=== PATIENT | female | born 1955 | race Two or more races ===

== ENCOUNTER 2016-03-20 09:15 | Emergency (ER) | payer MEDICAID, OTHER ==
[~2016-03-20] VITALS: Ht 165.1 cm; Wt 68.0 kg
[~2016-03-20 09:15] MED LIST: ALBUTEROL SULF8.5 GM INH; AZITHROMYCIN250 MG ORAL; CIPRO PO; CIPRO500 MG PO; IBUPROFEN200 MG ORAL; MACRODANTIN100 MG PO; PHENAZOPYRIDIN200 MG ORAL; PHENAZOPYRIDIN200 MG PO; SYNTHROID25 MCG ORAL; TYLENOL EXTRA500 MG ORAL; UNOBMED; VICODIN 5-5001 EACH PO; ZITHROMAX250 MG ORAL; ZOFRAN ODT4 MG ORAL
[2016-03-20 09:30] VITALS: BP 173/82
[2016-03-20] MEDS ORDERED: Albuterol ud Inhalation HHN ONE (09:30)
--- NOTE | 2016-03-20 09:34 | Emergency Room Report ---
History of Present Illness General Chief Complaint: Upper Respiratory Illness Source: Patient Present Illness HPI Patient presents with complaints of congestion cough Ongoing for the past 7 days Now having increased left-sided chest pain Patient reports having a history of cardiomegaly and thyroid disease Denies any abdominal pain Patient reports phlegm production with the cough also feels that she is very congested with a nasal area Denies any vomiting or diarrhea denies any fevers denies any recent travel Allergies: Coded Allergies: No Known Allergies (Verified , 05/27/14) Patient History Past Medical History: see triage record Pertinent Family History: none Last Menstrual Period: none Now: No Reviewed Nursing Documentation: PMH: Agreed, PSxH: Agreed Nursing Documentation-PMH Past Medical History: No History, Except For Hx Cardiac Problems: Yes - hyperthyroidism Hx Hypertension: Yes Hx Diabetes: No Hx Gastrointestinal Problems: Yes - history kidney problems Review of Systems All Other Systems: negative except mentioned in HPI Physical Exam Vital Signs Date Time Temp Pulse Resp B/P Pulse Ox O2 Delivery O2 Flow Rate FiO2 03/20/16 09:18 99.0 89 24 167/95 98 Room Air Sp02 EP Interpretation: reviewed, normal General Appearance: mild distress - Patient appears anxious Head: normocephalic, atraumatic Eyes: bilateral eye EOMI, bilateral eye PERRL ENT: hearing grossly normal, TMs + canals normal, other - Bilateral nasal congestion and rhinorrhea Neck: full range of motion, supple, no meningismus, no bony tend Respiratory: no retraction, no accessory muscle use, wheezing - Diffuse in both upper and lower lobes with crackles throughout Cardiovascular #1: normal peripheral pulses, regular rate, rhythm, no edema, no gallop, no JVD, no murmur Gastrointestinal: normal bowel sounds, non tender, soft, no mass, no organomegaly, non-distended, no guarding, no hernia, no pulsatile mass, no rebound Genitourinary: no CVA tenderness Musculoskeletal: normal inspection Neurologic: oriented x3, responsive, director design III-XII nml as tested, motor strength/ tone normal, sensory intact Psychiatric: mood/affect normal Skin: normal color, no rash, warm/dry, palpation normal Lymphatic: normal inspection, no adenopathy Medical Decision Making Diagnostic Impression: Primary Impression: Upper respiratory infection ER Course Patient is a fairly complex patient with multiple differential to consideration including but not limited to cardiac cardiopulmonary and vascular emergencies Patient's influenza swab was negative initial x-ray and blood work are also at baseline levels Given the patient's presentation slow component of flulike symptom present The patient's discomfort she also had some complaints of chest discomfort it was recommended for the patient to be admitted to the hospital however this time she states that she feels better she does not want to be admitted to the hospital and therefore at this time we will attempt conservative outpatient trial for URI symptoms However the patient is aware that her symptoms can worsen significantly very quickly leading to worsening symptoms Labs Test 03/20/16 10:00 White Blood Count 4.7 K/UL (4.8-10.8) Red Blood Count 4.52 M/UL (4.20-5.40) Hemoglobin 14.0 G/DL (12.0-16.0) Hematocrit 43.3 % (37.0-47.0) Mean Corpuscular Volume 96 FL (80-99) Mean Corpuscular Hemoglobin 31.0 PG (27.0-31.0) Mean Corpuscular Hemoglobin Concent 32.4 G/DL (32.0-36.0) Red Cell Distribution Width 11.4 % (11.6-14.8) Platelet Count 147 K/UL (150-450) Mean Platelet Volume 11.0 FL (6.5-10.1) Neutrophils (%) (Auto) 64.2 % (45.0-75.0) Lymphocytes (%) (Auto) 20.6 % (20.0-45.0) Monocytes (%) (Auto) 9.6 % (1.0-10.0) Eosinophils (%) (Auto) 4.2 % (0.0-3.0) Basophils (%) (Auto) 1.4 % (0.0-2.0) Prothrombin Time 9.6 SEC (9.30-11.50) Prothromb Time International Ratio 0.9 (0.9-1.1) Activated Partial Thromboplast Time 28 SEC (23-33) Sodium Level 138 mEQ/L (135-145) Potassium Level 4.7 mEQ/L (3.4-4.9) Chloride Level 100 mEQ/L (98-107) Carbon Dioxide Level 24 mEQ/L (20-30) Anion Gap 14 (5-15) Blood Urea Nitrogen 16 mg/dL (7-23) Creatinine 1.0 mg/dL (0.5-0.9) Estimat Glomerular Filtration Rate 56.8 mL/min (>60) Glucose Level 114 mg/dL (74-106) Lactic Acid Level 1.20 mmol/L (0.66-2.22) Calcium Level 8.5 mg/dL (8.6-10.2) Total Bilirubin 0.2 mg/dL (0.0-1.2) Aspartate Amino Transf (AST/SGOT) 48 U/L (5-40) Alanine Aminotransferase (ALT/SGPT) 38 U/L (3-33) Alkaline Phosphatase 73 U/L (35-104) Total Creatine Kinase 128 U/L (26-140) Creatine Kinase MB 2.1 ng/mL (< 3.8) Creatine Kinase MB Relative Index 1.6 Troponin I < 0.30 ng/mL (<=0.30) Pro-B-Type Natriuretic Peptide 163 pg/mL (0-125) Total Protein 7.0 g/dL (6.6-8.7) Albumin 3.5 g/dL (3.5-5.2) Globulin 3.5 g/dL Albumin/Globulin Ratio 1.0 (1.0-2.7) EKG Diagnostic Results Rate: normal Rhythm: NSR ST Segments: other - Nonspecific ST and T-wave changes Rhythm Strip Diag. Results EP Interpretation: yes Rate: 67 Rhythm: NSR, no PVC's, no ectopy Chest X-Ray Diagnostic Results EP Interpretation: Yes Findings: no consolidation, no effusion, no pneumothorax Number of Views: 1 Last Vital Signs Date Time Temp Pulse Resp B/P Pulse Ox O2 Delivery O2 Flow Rate FiO2 03/20/16 09:18 99.0 89 24 167/95 98 Room Air Status: improved Disposition: HOME, SELF-CARE Condition: Improved Scripts Cetirizine Hcl/Pseudoephedrine (ZYRTEC-D TABLET) 1 Each Tab.er.12h 1 EACH ORAL DAILY for 5 Days, TAB Prov: GLEN REECE D.O. 03/20/16 Azithromycin* (ZITHROMAX*) 250 Mg Tablet 250 MG ORAL DAILY, #6 TAB 0 Refills Take two tablets by mouth today, then take one tablet by mouth daily for four days Prov: GLEN REECE D.O. 03/20/16 Albuterol Sulfate* (ALBUTEROL SULFATE MDI*) 8.5 Gm Hfa.aer.ad 2 PUFF INH Q6H, #1 EA 0 Refills Prov: GLEN REECE D.O. 03/20/16 Additional Instructions: Patient is provided with the discharge instructions notified to follow up with primary doctor in the next 2-3 days otherwise return to the er with any worsening symptoms. GLEN REECE D.O. Mar 20, 2016 09:34
[2016-03-20 10:21] LABS: BASOPHILS % (AUTO) 1.4 % (0.0-2.0); EOSINOPHILS % (AUTO) 4.2 % (0.0-3.0); LYMPHOCYTES % (AUTO) 20.6 % (20.0-45.0); MEAN CORPUSCULAR HGB CONC 32.4 G/DL (32.0-36.0); MEAN CORPUSCULAR VOLUME 96 FL (80-99); MONOCYTES % (AUTO) 9.6 % (1.0-10.0); NEUTROPHILS % (AUTO) 64.2 % (45.0-75.0); PLATELET COUNT 147 K/UL (150-450); RED BLOOD COUNT 4.52 M/UL (4.20-5.40); RED CELL DISTRIBUTION WIDTH 11.4 % (11.6-14.8); WHITE BLOOD COUNT 4.7 K/UL (4.8-10.8)
[2016-03-20 10:34] LABS: INR 0.9 (0.9-1.1); PROTHROMBIN TIME 9.6 SEC (9.30-11.50)
[2016-03-20 10:51] LABS: TROPONIN I < 0.30 ng/mL (<=0.30)
--- NOTE | 2016-03-20 10:53 | Diagnostic Imaging Report ---
Indication: SOB Technique: One view of the chest Comparison: 05/27/2014 Findings: Lungs and pleural spaces are clear. Heart size is upper limits of normal. No significant change Impression: No acute process
[2016-03-20 10:54] LABS: CALCIUM 8.5 mg/dL (8.6-10.2); GLOMERULAR FILTRATION RATE 56.8 mL/min (>60); POTASSIUM 4.7 mEQ/L (3.4-4.9)
[2016-03-20 11:05] LABS: CKMB 2.1 ng/mL (< 3.8)
[2016-03-20 11:35] VITALS: BP 150/90
[2016-03-20] MEDS ORDERED: ZYRTEC-D TABLE1 EACH ORAL (11:43)
[2016-03-20] MEDS ORDERED: AZITHROMYCIN250 MG ORAL (11:43)
[2016-03-20] MEDS ORDERED: ALBUTEROL SULF8.5 GM INH (11:43)
[2016-03-20 12:00] VITALS: BP 150/80
--- NOTE | 2016-03-23 08:35 | Cardiology Report ---
APPROVED REPORT EKG Measurement Heart [id number] Normal sinus rhythm Possible Left atrial enlargement Prolonged QT Abnormal ECG
== END 2016-03-20 12:00 | disposition home or self-care (01) ==
LOC: EMR 09:39 → EDBEDREQ 10:17 → EMR 12:00
DX: J06.9 Acute upper respiratory infection, unspecified (principal); I10 Essential (primary) hypertension; I51.7 Cardiomegaly; E05.90 Thyrotoxicosis, unspecified without thyrotoxic crisis or storm; N28.9 Disorder of kidney and ureter, unspecified
CPT/HCPCS: 36415; 71010; 80053; 82550; 82553; 83605; 83880; 84484; 85025; 85610; 85730; 86710; 87040; 93005; 94640; 94664; 99284

== ENCOUNTER 2017-07-01 22:25 | Emergency (ER) | payer OTHER ==
[~2017-07-01] VITALS: Ht 167.6 cm; Wt 63.5 kg
[~2017-07-01 22:25] MED LIST changes: +ZYRTEC-D TABLE1 EACH ORAL
[2017-07-01 22:45] VITALS: BP 157/97
--- NOTE | 2017-07-01 22:46 | Emergency Room Report ---
History of Present Illness General Chief Complaint: General Complaint Source: Patient Present Illness HPI 61-year-old female, presenting with foreign body sensation in throat. Patient states that she ate tacos with crunchy tortilla, feels that still in the right side of her throat. This happened in the afternoon she is still been able to eat and drink since then. No vomiting. No other complaints Allergies: Coded Allergies: No Known Allergies (Verified , 05/27/14) Patient History Past Medical History: see triage record Past Surgical History: none Pertinent Family History: none Last Menstrual Period: none Now: No : 6 Para: 6 Reviewed Nursing Documentation: PMH: Agreed; PSxH: Agreed Nursing Documentation-PMH Hx Cardiac Problems: Yes - hyperthyroidism Hx Hypertension: Yes Hx Diabetes: No Hx Gastrointestinal Problems: Yes - history kidney problems Review of Systems All Other Systems: negative except mentioned in HPI Physical Exam Vital Signs Date Time Temp Pulse Resp B/P (MAP) Pulse Ox O2 Delivery O2 Flow Rate FiO2 07/01/17 22:33 97.9 73 18 157/97 96 Room Air 97.9 Sp02 EP Interpretation: reviewed, normal General Appearance: normal inspection, well appearing, no apparent distress, alert, GCS 15, non-toxic Head: normocephalic, atraumatic Eyes: bilateral eye normal inspection, bilateral eye PERRL, bilateral eye EOMI ENT: normal ENT inspection, normal pharynx, normal voice, moist mucus membranes , other - no fb noted Neck: normal inspection, full range of motion, supple Respiratory: normal inspection, lungs clear, normal breath sounds, no respiratory distress, no retraction, no wheezing, speaking full sentences, chest symmetrical Cardiovascular #1: normal inspection, regular rate, rhythm, no edema, normal capillary refill Cardiovascular #2: 2+ radial (R), 2+ radial (L) Gastrointestinal: normal inspection, non tender, soft, non-distended, no guarding Musculoskeletal: normal inspection, back normal, normal range of motion, non- tender Neurologic: normal inspection, alert, oriented x3, responsive, motor strength/ tone normal, sensory intact, normal gait, speech normal Psychiatric: normal inspection, judgement/insight normal, memory normal Skin: normal inspection, normal color, no rash, warm/dry, well hydrated, normal turgor Medical Decision Making Diagnostic Impression: Primary Impression: Foreign body sensation in throat ER Course 61-year-old female with foreign body sensation in throat DDX: Foreign body is not harmful, it is tortilla Plan: Motrin, x-ray ER course: Patient has remained stable during ED stay. Tolerating by mouth Disposition: Patient is to be discharged to home. Strict return precautions discussed with patient such as fever, chills, worsening/severe pain, chest pain, SOB, nausea, vomiting, which may indicate severe illness. Patient verbalizes understanding and agrees with plan. Please note that this Emergency Department Report was dictated using [employer]/structure inspection team leader technology software, occasionally this can lead to erroneous entry secondary to interpretation by the dictation equipment Xray: Soft tissue neck 2 view Indication: Pain EP Interpretation: Yes Interpretation: No foreign body Impression: No acute disease Electronically signed by Joby Villagran MD Last Vital Signs Date Time Temp Pulse Resp B/P (MAP) Pulse Ox O2 Delivery O2 Flow Rate FiO2 07/01/17 22:33 97.9 73 18 157/97 96 Room Air 97.9 Disposition: HOME, SELF-CARE Condition: Improved Joby Villagran M.D. Jul 01, 2017 22:46
[2017-07-01 23:35] VITALS: BP 157/97
--- NOTE | 2017-07-02 10:50 | Diagnostic Imaging Report ---
Indication: Pain, sensation of food stuck in the right side of the throat Technique: 2 views of the neck with soft tissue technique Comparison: none Findings: No prevertebral soft tissue swelling. Normal epiglottis. No hypopharyngeal distention or colonic narrowing. No radiopaque foreign body demonstrated. Mild degenerative changes of the cervical spine are incidentally noted Impression: Negative
== END 2017-07-01 23:34 | disposition home or self-care (01) ==
LOC: EMR 23:00
DX: R09.89 Other specified symptoms and signs involving the circulatory and respiratory systems (principal); I10 Essential (primary) hypertension; E05.90 Thyrotoxicosis, unspecified without thyrotoxic crisis or storm
CPT/HCPCS: 70360; 99283

== ENCOUNTER 2018-02-11 08:45 | Emergency (ER) | payer OTHER ==
[~2018-02-11] VITALS: Ht 167.6 cm; Wt 77.1 kg
[2018-02-11 08:50] VITALS: BP 152/87
[2018-02-11] MEDS ORDERED: Acetaminophen 500mg (ES) tab ORAL ONE (09:00)
--- NOTE | 2018-02-11 09:05 | Emergency Room Report ---
History of Present Illness General Chief Complaint: Abdominal Pain Source: Patient Present Illness HPI Patient is a 62-year-old female brought in by walk-in for increased right upper quadrant abdominal pain. Patient reports having prior history of urinary tract infections in the past. Patient had returned from [facility] last night. She denies any chest discomfort or cough. Patient reports having worsening fever as well as vomiting. She had taken ibuprofen without improvement. Noted to have no cough or runny nose. She denies any sore throat. The patient reports having increased right upper quadrant pain. She had no associated skin color changes. She denies any vomiting or diarrhea. Allergies: Coded Allergies: No Known Allergies (Verified , 05/27/14) Patient History Past Medical History: see triage record Reviewed Nursing Documentation: PMH: Agreed; PSxH: Agreed Nursing Documentation-PMH Past Medical History: No History, Except For Hx Cardiac Problems: Yes - hyperthyroidism Hx Hypertension: Yes Hx Diabetes: No Hx Gastrointestinal Problems: Yes - history kidney problems Review of Systems All Other Systems: negative except mentioned in HPI Physical Exam Vital Signs Date Time Temp Pulse Resp B/P (MAP) Pulse Ox O2 Delivery O2 Flow Rate FiO2 02/11/18 08:50 98.2 84 21 152/87 97 Room Air Sp02 EP Interpretation: reviewed, normal General Appearance: normal inspection, well appearing, no apparent distress, alert, GCS 15 Head: atraumatic ENT: normal ENT inspection, hearing grossly normal, normal voice Neck: normal inspection, full range of motion, supple, no bony tend Respiratory: normal inspection, lungs clear, normal breath sounds, no respiratory distress, no retraction, no wheezing Cardiovascular #1: regular rate, rhythm, no edema Gastrointestinal: normal bowel sounds, soft, no guarding, no hernia, tenderness - right upper quadrant Genitourinary: no CVA tenderness Musculoskeletal: normal inspection, back normal, normal range of motion Neurologic: normal inspection, alert, oriented x3, responsive, casing crew III-XII nml as tested, motor strength/tone normal, speech normal Psychiatric: normal inspection, judgement/insight normal, mood/affect normal Skin: normal inspection, normal color, no rash Medical Decision Making Diagnostic Impression: Primary Impression: Fever Additional Impressions: Liver cyst Polycystic kidney disease ER Course Patient presented for abdominal pain. Differential diagnoses included ischemic bowel, appendicitis, perforated viscus, abdominal aortic aneurysm, inferior myocardial infarction, viral gastroenteritis Because of complexity of patient's case laboratory testing and imaging studies were ordered.The patient's blood testing showed evidence of the left shift and polycystic kidney disease on CT as well as polycystic liver disease.The patient was noted to have fever after recent travel. On broad-spectrum antibiotics. Dr. Barnes was contacted for [facility] for possible transfer. Labs Test 02/11/18 09:08 02/11/18 09:19 White Blood Count 10.4 K/UL (4.8-10.8) Red Blood Count 4.84 M/UL (4.20-5.40) Hemoglobin 14.6 G/DL (12.0-16.0) Hematocrit 43.3 % (37.0-47.0) Mean Corpuscular Volume 90 FL (80-99) Mean Corpuscular Hemoglobin 30.2 PG (27.0-31.0) Mean Corpuscular Hemoglobin Concent 33.7 G/DL (32.0-36.0) Red Cell Distribution Width 11.0 % (11.6-14.8) Platelet Count 137 K/UL (150-450) Mean Platelet Volume 10.1 FL (6.5-10.1) Neutrophils (%) (Auto) 83.5 % (45.0-75.0) Lymphocytes (%) (Auto) 8.7 % (20.0-45.0) Monocytes (%) (Auto) 7.2 % (1.0-10.0) Eosinophils (%) (Auto) 0.2 % (0.0-3.0) Basophils (%) (Auto) 0.4 % (0.0-2.0) Urine Color Pale yellow Urine Appearance Clear Urine pH 7 (4.5-8.0) Urine Specific [place] 1.005 (1.005-1.035) Urine Protein 1+ (NEGATIVE) Urine Glucose (UA) Negative (NEGATIVE) Urine Ketones Negative (NEGATIVE) Urine Blood 1+ (NEGATIVE) Urine Nitrite Negative (NEGATIVE) Urine Bilirubin Negative (NEGATIVE) Urine Urobilinogen Normal MG/DL (0.0-1.0) Urine Leukocyte Esterase 1+ (NEGATIVE) Urine RBC 0-2 /HPF (0 - 2) Urine WBC 0-2 /HPF (0 - 2) Urine Squamous Epithelial Cells Occasional /LPF Urine Bacteria Occasional /HPF (NONE) Sodium Level 137 MMOL/L (136-145) Potassium Level 3.8 MMOL/L (3.5-5.1) Chloride Level 101 MMOL/L (98-107) Carbon Dioxide Level 26 MMOL/L (21-32) Anion Gap 10 mmol/L (5-15) Blood Urea Nitrogen 18 mg/dL (7-18) Creatinine 0.9 MG/DL (0.55-1.30) Estimat Glomerular Filtration Rate > 60 mL/min (>60) Glucose Level 131 MG/DL (74-106) Calcium Level 9.0 MG/DL (8.5-10.1) Phosphorus Level 2.4 MG/DL (2.5-4.9) Magnesium Level 1.5 MG/DL (1.8-2.4) Total Bilirubin 1.2 MG/DL (0.2-1.0) Direct Bilirubin 0.3 MG/DL (0.0-0.3) Aspartate Amino Transf (AST/SGOT) 60 U/L (15-37) Alanine Aminotransferase (ALT/SGPT) 54 U/L (12-78) Alkaline Phosphatase 85 U/L (46-116) Total Creatine Kinase 93 U/L (26-308) Creatine Kinase MB 0.8 NG/ML (0.0-3.6) Creatine Kinase MB Relative Index 0.8 Troponin I 0.010 ng/mL (0.000-0.056) Total Protein 8.2 G/DL (6.4-8.2) Albumin 3.3 G/DL (3.4-5.0) Globulin 4.9 g/dL Albumin/Globulin Ratio 0.7 (1.0-2.7) Lactic Acid Level 0.90 mmol/L (0.4-2.0) Last Vital Signs Date Time Temp Pulse Resp B/P (MAP) Pulse Ox O2 Delivery O2 Flow Rate FiO2 02/11/18 08:50 98.2 84 21 152/87 97 Room Air Status: unchanged Disposition: XFER SHT-TRM HOSP Condition: Serious Dawson Reyes MD Feb 11, 2018 09:05
[2018-02-11] MEDS ORDERED: Isovue-300 100ml vial INJ PRN (09:15)
[2018-02-11 09:37] LABS: BASOPHILS % (AUTO) 0.4 % (0.0-2.0); EOSINOPHILS % (AUTO) 0.2 % (0.0-3.0); HEMATOCRIT 43.3 % (37.0-47.0); HEMOGLOBIN 14.6 G/DL (12.0-16.0); LYMPHOCYTES % (AUTO) 8.7 % (20.0-45.0); MEAN CORPUSCULAR VOLUME 90 FL (80-99); MONOCYTES % (AUTO) 7.2 % (1.0-10.0); NEUTROPHILS % (AUTO) 83.5 % (45.0-75.0); PLATELET COUNT 137 K/UL (150-450); RED BLOOD COUNT 4.84 M/UL (4.20-5.40); WHITE BLOOD COUNT 10.4 K/UL (4.8-10.8)
[2018-02-11 09:42] LABS: APPEARANCE,URINE CLEAR; BILIRUBIN, URINE NEGATIVE (NEGATIVE); COLOR,URINE PALE YELLOW; GLUCOSE, URINE (UA) NEGATIVE (NEGATIVE); KETONES,URINE NEGATIVE (NEGATIVE); LEUKOCYTE ESTERASE ,URINE 1+ (NEGATIVE); NITRITE,URINE NEGATIVE (NEGATIVE); PH,URINE 7 (4.5-8.0); PROTEIN,URINE 1+ (NEGATIVE); UROBILINOGEN,URINE NORMAL MG/DL (0.0-1.0)
[2018-02-11 09:46] LABS: ANION GAP 10 mmol/L (5-15); BLOOD UREA NITROGEN 18 mg/dL (7-18); CARBON DIOXIDE 26 MMOL/L (21-32); CHLORIDE 101 MMOL/L (98-107); CREATININE 0.9 MG/DL (0.55-1.30); POTASSIUM 3.8 MMOL/L (3.5-5.1); SODIUM 137 MMOL/L (136-145)
[2018-02-11] MEDS ORDERED: Omnipaque-300 100ml vial INJ ONE (09:56)
[2018-02-11 10:00] LABS: ALANINE AMINOTRANSFERASE 54 U/L (12-78); ALBUMIN 3.3 G/DL (3.4-5.0); ALBUMIN/GLOBULIN RATIO 0.7 (1.0-2.7); ALKALINE PHOSPHATASE 85 U/L (46-116); ASPARTATE AMINO TRANSFERASE 60 U/L (15-37); BILIRUBIN,TOTAL 1.2 MG/DL (0.2-1.0); CKMB 0.8 NG/ML (0.0-3.6); CREATINE KINASE 93 U/L (26-308); PHOSPHORUS 2.4 MG/DL (2.5-4.9)
--- NOTE | 2018-02-11 10:02 | Diagnostic Imaging Report ---
EXAM: XR Chest, 1 View CLINICAL HISTORY: ABD TEND TECHNIQUE: Frontal view of the chest. COMPARISON: No relevant prior studies available. FINDINGS: Lungs: Unremarkable. The lungs appear clear. No confluent pulmonary opacities. Pleural space: Unremarkable. The costophrenic angles are sharp. No visible pneumothorax. Heart: Unremarkable. No cardiomegaly. Mediastinum: Unremarkable. Bones/joints: Unremarkable. IMPRESSION: Unremarkable chest x-ray.
[2018-02-11 10:17] LABS: BILIRUBIN,DIRECT 0.3 MG/DL (0.0-0.3)
[2018-02-11] MEDS ORDERED: Piperacillin/Tazobactam 3.375 GM in NS 110 ML IVPB ONE (10:30)
--- NOTE | 2018-02-11 11:12 | Diagnostic Imaging Report ---
EXAM: CT Abdomen and Pelvis With Intravenous Contrast CLINICAL HISTORY: ABD PAIN TECHNIQUE: Axial computed tomography images of the abdomen and pelvis with intravenous contrast. CTDI is 12.92 mGy and DLP is 652 mGy-cm. One or more of the following dose reduction techniques were used: automated exposure control, adjustment of the mA and/or kV according to patient size, use of iterative reconstruction technique. COMPARISON: Report from a CT abdomen pelvis dated 02/06/13. No images available for comparison. FINDINGS: Lung bases: 4 mm calcified granuloma in the right middle lobe (series 7 image 1). Mildly narrowed atelectasis in the lingula. ABDOMEN: Liver: Innumerable simple-appearing hepatic cysts, largest measuring 6. 1 cm in the right hepatic lobe. Gallbladder and bile ducts: Unremarkable. No calcified stones. No ductal dilation. Pancreas: Unremarkable. No mass. No ductal dilation. Spleen: Punctate calcified granuloma in the spleen. Spleen otherwise appears unremarkable. Adrenals: Unremarkable. No mass. Kidneys and ureters: Innumerable simple-appearing renal cysts, largest measuring 5.4 cm in the left mid kidney. No visible renal or ureteral stones. No hydronephrosis or hydroureter. Stomach and bowel: Mild wall thickening in the ascending and proximal transverse colon, likely related to underdistention. No evidence of bowel obstruction. Stomach and GE junction appear unremarkable. PELVIS: Appendix: No findings to suggest acute appendicitis. Bladder: Unremarkable. No mass. Reproductive: Unremarkable as visualized. ABDOMEN and PELVIS: Intraperitoneal space: Unremarkable. No free air. No significant fluid collection. Bones/joints: No acute fracture. No dislocation. Soft tissues: Unremarkable. Vasculature: Unremarkable. No abdominal aortic aneurysm. Lymph nodes: Unremarkable. No enlarged lymph nodes. IMPRESSION: 1. Mild wall thickening in the ascending and proximal transverse colon. This is likely related to underdistention although cannot exclude a mild colitis. No adjacent inflammatory changes. 2. Innumerable simple-appearing hepatic and renal cysts, suggesting autosomal dominant polycystic kidney disease.
[2018-02-11 11:40] VITALS: BP 140/71
[2018-02-11] MEDS ORDERED: Morphine Sulfate 4mg/ml Inj (IV/IM USE ONLY) IVP ONE (12:15)
[2018-02-11 14:18] VITALS: BP 140/71
--- NOTE | 2018-02-12 12:47 | Consultation ---
History of Present Illness General Date patient seen: Feb 11, 2018 Chief Complaint: Abdominal Pain Reason for Consultation: abdominal pain Present Illness HPI Late entry as patient was seen in ED and anticipated admission with plans to write note later. 62-year-old female came in as a walk in for increased right upper quadrant abdominal pain, nausea, emesis. States has been having fevers recently with t max 102 at home. Patient reports having prior history of urinary tract infections in the past. Patient with recent travel and returned from [facility] last night. She denies any chest discomfort or cough. She had taken ibuprofen for the abdominal pain without improvement. Pain described as cramping RUQ pain with epigastric radiation. non bloody bilious emesis. Noted to have no cough or runny nose. She denies any sore throat. normal flatus and BM. no prior symptoms similar. CT noted to have multiple liver and renal cystis. surgery called to evaluate in case biliary or hepatic abscess. patient seen in ED, chart reviewed, patient examined. states still feels feverish and dull RUQ discomfort. currently no n/v. Allergies: Coded Allergies: No Known Allergies (Verified , 05/27/14) Medication History Scheduled Albuterol Sulfate* (Albuterol Sulfate Mdi*), 2 PUFF INH Q6H Azithromycin* (Zithromax*), 250 MG ORAL DAILY Azithromycin* (Zithromax*), 250 MG ORAL DAILY Cetirizine Hcl/Pseudoephedrine (Zyrtec-D Tablet), 1 EACH ORAL DAILY Ciprofloxacin* (Cipro*), 500 MG PO BID Ibuprofen (Ibuprofen*), 200 MG ORAL Q8H Levothyroxine Sodium* (Synthroid*), 25 MCG ORAL DAILY, (Reported) Phenazopyridine Hcl* (Pyridium*), 200 MG ORAL THREE TIMES A DAY Scheduled PRN Acetaminophen* (Tylenol Extra Strength*), 500 MG ORAL Q6H PRN for Prn Headache/ Temp > 101 Albuterol Sulfate* (Albuterol Sulfate Mdi*), 2 PUFF INH Q4H PRN for Shortness of Breath Ondansetron Odt* (Zofran Odt*), 4 MG ORAL Q6H PRN for Nausea & Vomiting Patient History History Provided By: Patient, Medical Record, PMD Healthcare decision maker Resuscitation status Advanced Directive on File Past Medical/Surgical History Past Medical/Surgical History: (1) Pyelonephritis (2) Bronchitis (3) UTI (lower urinary tract infection) (4) Viral syndrome (5) Body aches (6) UTI (lower urinary tract infection) (7) Dysuria (8) Vomiting (9) Upper respiratory infection (10) Foreign body sensation in throat (11) Fever Review of Systems All Other Systems: negative except mentioned in HPI Physical Exam General Appearance: no apparent distress, alert Lines, tubes and drains: peripheral HEENT: mucous membranes moist Neck: normal inspection Respiratory/Chest: normal breath sounds, no respiratory distress, no accessory muscle use Cardiovascular/Chest: normal rate, regular rhythm Abdomen: normal bowel sounds, soft, no organomegaly, no mass, tender Extremities: normal inspection Skin Exam: warm/dry Neurologic: alert, responsive Last 24 Hour Vital Signs Date Time Temp Pulse Resp B/P (MAP) Pulse Ox O2 Delivery O2 Flow Rate FiO2 02/11/18 14:18 98.0 75 19 140/71 100 Room Air 02/11/18 12:44 98.0 Intake and Output 02/11/18 02/12/18 19:00 07:00 Intake Total 1210 ml Balance 1210 ml Intake IV Total 1210 ml # Voids 1 Height (Feet): 5 Height (Inches): 6.00 Weight (Pounds): 170 Assessment/Plan Problem List: (1) Liver cyst Assessment & Plan: multiple liver and renal cyst. known history of PCK. no leukocytosis. labs noted GB noted exam with minimal RUQ discomfort unlikely liver abscess. 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 ICD Codes: K76.89 - Other specified diseases of liver SNOMED: [id number] (2) Viral syndrome ICD Codes: B34.9 - Viral infection, unspecified SNOMED: [id number] Status: stable Nicolas Johnson Feb 12, 2018 12:47
== END 2018-02-11 14:03 | disposition short-term general hospital (02) ==
LOC: EMR 09:04
DX: R50.9 Fever, unspecified (principal); K76.89 Other specified diseases of liver; Q61.3 Polycystic kidney, unspecified; I10 Essential (primary) hypertension; E05.90 Thyrotoxicosis, unspecified without thyrotoxic crisis or storm
CPT/HCPCS: 36415; 71045; 74177; 80053; 81003; 82248; 82550; 82553; 83605; 83735; 84100; 84484; 85025; 86710; 86850; 86900; 86901; 87040; 93005; 96361; 96365; 96368; 96375; 99284; J2270; J2543; Q9966; Q9967

== ENCOUNTER 2018-04-10 00:04 | Emergency (ER) | payer OTHER ==
[~2018-04-10] VITALS: Ht 165.1 cm; Wt 63.5 kg
[2018-04-10] MEDS ORDERED: NKM (00:14)
--- NOTE | 2018-04-10 00:15 | NUR ---
ED Nurse Note: ERMD notified regarding pt's condition, pt states she has cp and sob. noted audible wheezing, accesory muscle use.
--- NOTE | 2018-04-10 00:15 | NUR ---
ED Nurse Note: pt walked into ED c/o difficulty breathing and chest pain started 8pm today, pt states she woke up with pain and started having difficulty breathing, never had pain before, on sternal area radiates to left side. Pt aa&ox4, gcs=15, skin warm and dry, noted audible wheezing, mild expiratory wheezing on LS, -n/v/d, abd soft nondistended nontender, ambulates w/ steady gait. Pt NSR on cafeteria monitor, o2sat 100% on RA. bed lowest position, siderail x2, will cont monitor.
[2018-04-10] MEDS ORDERED: Albuterol ud Inhalation HHN ONE (00:45)
--- NOTE | 2018-04-10 00:45 | NUR ---
ED Nurse Note: received verbal order for breathing tx, contacted RT.
[2018-04-10 00:58] LABS: BASOPHILS % (AUTO) 1.1 % (0.0-2.0); EOSINOPHILS % (AUTO) 2.7 % (0.0-3.0); HEMATOCRIT 45.6 % (37.0-47.0); HEMOGLOBIN 15.2 G/DL (12.0-16.0); LYMPHOCYTES % (AUTO) 35.6 % (20.0-45.0); MEAN CORPUSCULAR VOLUME 93 FL (80-99); NEUTROPHILS % (AUTO) 55.5 % (45.0-75.0); PLATELET COUNT 219 K/UL (150-450); RED BLOOD COUNT 4.91 M/UL (4.20-5.40); RED CELL DISTRIBUTION WIDTH 12.1 % (11.6-14.8); WHITE BLOOD COUNT 6.8 K/UL (4.8-10.8)
--- NOTE | 2018-04-10 01:00 | NUR ---
ED Nurse Note: Rt at the bedside, pt receiving breathing tx.
[2018-04-10 01:10] VITALS: BP 136/98
[2018-04-10 01:10] LABS: ANION GAP 11 mmol/L (5-15); BLOOD UREA NITROGEN 24 mg/dL (7-18); CALCIUM 9.5 MG/DL (8.5-10.1); CARBON DIOXIDE 23 MMOL/L (21-32); CHLORIDE 104 MMOL/L (98-107); CREATININE 0.9 MG/DL (0.55-1.30); SODIUM 138 MMOL/L (136-145)
--- NOTE | 2018-04-10 01:14 | NUR ---
ED Nurse Note: pt airway intact, resp even and unlabored, LS=clear, noted no audible wheezing and no accessory muscle use, will cont monitor, pt currently on RA, x5=059%.
--- NOTE | 2018-04-10 01:14 | NUR ---
ED Nurse Note: pt reports chest pain is better after breathing tx, but still continue to have trouble breathing, will notify md.
[2018-04-10 01:25] LABS: ALANINE AMINOTRANSFERASE 28 U/L (12-78); ALBUMIN 3.4 G/DL (3.4-5.0); ALBUMIN/GLOBULIN RATIO 0.8 (1.0-2.7); ALKALINE PHOSPHATASE 84 U/L (46-116); ASPARTATE AMINO TRANSFERASE 37 U/L (15-37); BILIRUBIN,TOTAL 0.7 MG/DL (0.2-1.0); CKMB 1.9 NG/ML (0.0-3.6); CREATINE KINASE 213 U/L (26-308)
[2018-04-10 01:34] LABS: APPEARANCE,URINE CLEAR; BILIRUBIN, URINE NEGATIVE (NEGATIVE); COLOR,URINE PALE YELLOW; GLUCOSE, URINE (UA) NEGATIVE (NEGATIVE); KETONES,URINE NEGATIVE (NEGATIVE); LEUKOCYTE ESTERASE ,URINE 1+ (NEGATIVE); NITRITE,URINE NEGATIVE (NEGATIVE); PH,URINE 6.5 (4.5-8.0); PROTEIN,URINE NEGATIVE (NEGATIVE); UROBILINOGEN,URINE NORMAL MG/DL (0.0-1.0)
[2018-04-10] MEDS ORDERED: Enoxaparin 60mg Inj SUBQ ONE (01:45)
[2018-04-10] MEDS ORDERED: Aspirin Baby 81mg ORAL ONE (01:45)
[2018-04-10] MEDS ORDERED: Aspirin Baby 81mg ONE (02:02)
[2018-04-10 02:12] VITALS: BP 155/83
--- NOTE | 2018-04-10 02:46 | Emergency Room Report ---
History of Present Illness General Chief Complaint: Dyspnea/Respdistress Source: Patient Present Illness HPI This is a 62-year-old female with history hypertension. She woke up with chief complaint of shortness of breath. Onset was one hour ago. Pain is sharp and midsternal. Worse with exertion. Better with rest. Worse with lying flat. Never had this problem before. No diaphoresis. No radiation. Denies any other complaint. Allergies: Coded Allergies: No Known Allergies (Verified , 05/27/14) Patient History Past Medical History: see triage record, old chart reviewed, HTN Past Surgical History: other Pertinent Family History: none Social History: Denies: smoking Last Menstrual Period: MARISA Now: No Immunizations: other Reviewed Nursing Documentation: PMH: Agreed; PSxH: Agreed Nursing Documentation-PMH Past Medical History: No History, Except For Hx Cardiac Problems: Yes - hyperthyroidism Hx Hypertension: Yes Hx Diabetes: No Hx Gastrointestinal Problems: Yes - history kidney problems Review of Systems Eye: Denies: eye pain, blurred vision ENT: Denies: ear pain, nose congestion, throat swelling Respiratory: Reports: shortness of breath; Denies: cough Cardiovascular: Reports: chest pain; Denies: palpitations Gastrointestinal: Denies: abdominal pain, diarrhea, nausea, vomiting Musculoskeletal: Denies: back pain, joint pain Skin: Denies: rash Neurological: Denies: headache, numbness Endocrine: Denies: increased thirst, increased urine Hematologic/Lymphatic: Denies: easy bruising All Other Systems: negative except mentioned in HPI Physical Exam Vital Signs Date Time Temp Pulse Resp B/P (MAP) Pulse Ox O2 Delivery O2 Flow Rate FiO2 04/10/18 00:10 99.0 84 22 165/101 95 Room Air 04/10/18 00:50 21 vitals with high blood pressure Sp02 EP Interpretation: reviewed, normal General Appearance: well appearing, no apparent distress, alert Head: normocephalic, atraumatic Eyes: bilateral eye PERRL, bilateral eye EOMI ENT: hearing grossly normal, normal pharynx Neck: full range of motion, supple, no meningismus Respiratory: chest non-tender, lungs clear, normal breath sounds Cardiovascular #1: regular rate, rhythm, no murmur Gastrointestinal: normal bowel sounds, non tender, no mass, no organomegaly, no bruit, non-distended Musculoskeletal: back normal, gait/station normal, normal range of motion Psychiatric: mood/affect normal Skin: warm/dry Medical Decision Making Diagnostic Impression: Primary Impression: Acute CHF Qualified Codes: I50.9 - Heart failure, unspecified Additional Impression: ACS (acute coronary syndrome) ER Course Patient presents with shortness of breath. She does have evidence of CHF on the chest x-ray. This may be secondary to ACS. Could also be PE. Will get a CT scan to rule that out. I doubt patient is stable for transfer. I discussed case with Dr. Rodriguez for transfer to [facility] Laboratory Tests Test 04/10/18 00:44 04/10/18 00:45 White Blood Count 6.8 K/UL (4.8-10.8) Red Blood Count 4.91 M/UL (4.20-5.40) Hemoglobin 15.2 G/DL (12.0-16.0) Hematocrit 45.6 % (37.0-47.0) Mean Corpuscular Volume 93 FL (80-99) Mean Corpuscular Hemoglobin 31.0 PG (27.0-31.0) Mean Corpuscular Hemoglobin Concent 33.4 G/DL (32.0-36.0) Red Cell Distribution Width 12.1 % (11.6-14.8) Platelet Count 219 K/UL (150-450) Mean Platelet Volume 11.6 FL (6.5-10.1) H Neutrophils (%) (Auto) 55.5 % (45.0-75.0) Lymphocytes (%) (Auto) 35.6 % (20.0-45.0) Monocytes (%) (Auto) 5.0 % (1.0-10.0) Eosinophils (%) (Auto) 2.7 % (0.0-3.0) Basophils (%) (Auto) 1.1 % (0.0-2.0) Prothrombin Time 10.2 SEC (9.30-11.50) Prothromb Time International Ratio 1.0 (0.9-1.1) Activated Partial Thromboplast Time 27 SEC (23-33) D-Dimer 1.00 mg/L FEU (0.00-0.49) H Sodium Level 138 MMOL/L (136-145) Potassium Level 4.0 MMOL/L (3.5-5.1) Chloride Level 104 MMOL/L (98-107) Carbon Dioxide Level 23 MMOL/L (21-32) Anion Gap 11 mmol/L (5-15) Blood Urea Nitrogen 24 mg/dL (7-18) H Creatinine 0.9 MG/DL (0.55-1.30) Estimat Glomerular Filtration Rate > 60 mL/min (>60) Glucose Level 122 MG/DL (74-106) H Calcium Level 9.5 MG/DL (8.5-10.1) Total Bilirubin 0.7 MG/DL (0.2-1.0) Aspartate Amino Transf (AST/SGOT) 37 U/L (15-37) Alanine Aminotransferase (ALT/SGPT) 28 U/L (12-78) Alkaline Phosphatase 84 U/L (46-116) Total Creatine Kinase 213 U/L (26-308) Creatine Kinase MB 1.9 NG/ML (0.0-3.6) Creatine Kinase MB Relative Index 0.8 Troponin I 0.059 ng/mL (0.000-0.056) Pro-B-Type Natriuretic Peptide 1291 pg/mL (0-125) H Total Protein 7.9 G/DL (6.4-8.2) Albumin 3.4 G/DL (3.4-5.0) Globulin 4.5 g/dL Albumin/Globulin Ratio 0.8 (1.0-2.7) L Urine Color Pale yellow Urine Appearance Clear Urine pH 6.5 (4.5-8.0) Urine Specific [place] 1.010 (1.005-1.035) Urine Protein Negative (NEGATIVE) Urine Glucose (UA) Negative (NEGATIVE) Urine Ketones Negative (NEGATIVE) Urine Blood Negative (NEGATIVE) Urine Nitrite Negative (NEGATIVE) Urine Bilirubin Negative (NEGATIVE) Urine Urobilinogen Normal MG/DL (0.0-1.0) Urine Leukocyte Esterase 1+ (NEGATIVE) H Urine RBC 0-2 /HPF (0 - 2) Urine WBC 2-4 /HPF (0 - 2) Urine Squamous Epithelial Cells Few /LPF (NONE/OCC) Urine Bacteria Few /HPF (NONE) Lactic Acid Level 1.30 mmol/L (0.4-2.0) Lab Results Impression labs with elevated BNP EKG Diagnostic Results Rate: normal Rhythm: NSR ST Segments: no acute changes ASA given to the pt in ED: Yes Rhythm Strip Diag. Results Rhythm Strip Time: 02:44 EP Interpretation: yes Rate: 75 Rhythm: NSR, no PVC's, no ectopy Chest X-Ray Diagnostic Results Chest X-Ray Diagnostic Results : Chest X-Ray Ordered: Yes # of Views/Limited/Complete: 1 View Indication: Chest Pain EP Interpretation: Yes Interpretation: no consolidation, no effusion, no pneumothorax, other - vasc congestion Impression: Other - chf Electronically Signed by: Immanuel Rosas MD CT/MRI/US Diagnostic Results CT/MRI/US Diagnostic Results : Imaging Test Ordered: CTA chest Impression read by radiologist. Negative for PE. Effusion. Last Vital Signs Date Time Temp Pulse Resp B/P (MAP) Pulse Ox O2 Delivery O2 Flow Rate FiO2 04/10/18 02:12 98.0 85 16 155/83 98 Room Air 04/10/18 01:08 21 Status: improved Disposition: XFER SHT-TRM HOSP Condition: Stable Referrals: [facility],REFERRING (PCP) Immanuel Rosas MD Apr 10, 2018 02:46
--- NOTE | 2018-04-10 02:52 | NUR ---
ED Nurse Note: pt off to CT
[2018-04-10] MEDS ORDERED: Isovue-370 150ml vial INJ PRN (03:00)
--- NOTE | 2018-04-10 03:00 | NUR ---
ED Nurse Note: gave report to SANIA Addison and endorsed care. pt vss, resp even and unlabored, daughter at the bedside.
[2018-04-10 03:12] VITALS: BP 130/78
--- NOTE | 2018-04-10 03:43 | NUR ---
ED Nurse Note: pt on visual educator, bed lowest position with siderail x2.
--- NOTE | 2018-04-10 04:00 | NUR ---
ED Nurse Note: recieved report to resume care, pt is currently in bed, lying quietly on cardiac monitoring, pt waiting for transfer to another hospital for continued care, pt daughter at bedside, nad noted.
[2018-04-10 04:50] VITALS: BP 130/78
--- NOTE | 2018-04-10 04:51 | NUR ---
ED Nurse Note: pt being transferred to another hospital, while in trauma room with another pt, pt was released and gone via ambulance, was told by charge nurse that report was given to courtesy bus driver by , will call other hospital for report.
--- NOTE | 2018-04-10 09:36 | Diagnostic Imaging Report ---
Indication: Shortness of breath, onset one hour earlier Technique: IV administration nonionic contrast. Spiral acquisitions obtained from the lung bases to the lung apices. Multiplanar and 3-D reconstructions were generated. Total dose length product 738.62 mGycm. CTDIvol(s) 22.41 mGy. Dose reduction achieved using automated exposure control Comparison: No comparison chest CTs. Reference made to abdomen pelvis CT dated 02/11/2018 Findings: There is some image degradation due to respiratory motion artifact. Pulmonary arteries are well opacified. No definite intraluminal filling defects or other findings to suggest acute pulmonary embolus demonstrated. Normal caliber pulmonary arteries. No evidence of thoracic aortic aneurysm or dissection. No evidence of right ventricular dilatation. There is mild cardiomegaly, primarily manifested by enlargement of the left atrium and left ventricle. There is normal classic branching anatomy of the great neck vessels. There are bilateral small pleural effusions. There is fairly diffuse pulmonary parenchymal groundglass opacity. No dense consolidation demonstrated. Calcified nodules are seen in the right upper lobe, right middle lobe, and left lower lobe. Calcified granulomatous lymph nodes are seen in the right pulmonary hilum. There is a small amount of pericardial thickening versus fluid. No mediastinal mass or adenopathy demonstrated. The included portion of the thyroid is unremarkable. No axillary or chest wall mass or adenopathy. There are bilateral breast implants. The included upper abdominal anatomy is remarkable for the presence of innumerable cysts within the liver. This is also described on earlier CT scans. Numerous cysts, incompletely included, are seen in the upper pole of the left kidney. Impression: Somewhat limited exam, as described. No definite evidence of acute pulmonary embolus Cardiomegaly Bilateral pleural effusions Diffuse pulmonary parenchymal groundglass opacity, likely reflecting mild pulmonary edema Small amount of pericardial thickening versus fluid Evidence old granulomatous disease Hepatic and renal cysts, also previously described Bilateral breast prostheses This agrees with the preliminary interpretation provided overnight by [facility]. The CT scanner at [facility] is accredited by the [employer] and the scans are performed using protocols designed to limit radiation exposure to as low as reasonably achievable to attain images of sufficient resolution adequate for diagnostic evaluation.
--- NOTE | 2018-04-10 10:48 | Diagnostic Imaging Report ---
Indication: Shortness of breath Technique: One view of the chest Comparison: 02/11/2018 Findings: Ill-defined interstitial and airspace opacities are seen at the lung bases bilaterally. Pleural spaces are clear. The heart size is borderline enlarged. Calcified granulomata are seen in the lower lungs bilaterally Impression: Bilateral basilar opacities, likely reflecting congestive changes described on subsequent chest CT Borderline cardiomegaly Evidence of old granulomatous disease
--- NOTE | 2018-04-10 12:33 | Cardiology Report ---
APPROVED REPORT EKG Measurement Heart [id number] NH [id number] [id number] Normal sinus rhythm Possible Left atrial enlargement Prolonged QT Abnormal ECG
[2018-08-24] MEDS ORDERED: DICYCLOMINE HCL10 MG ORAL ×2 (23:41)
[2018-08-24] MEDS ORDERED: ONDANSETRON ODT4 MG BC ×2 (23:41)
== END 2018-04-10 04:51 | disposition short-term general hospital (02) ==
LOC: EMR 00:15
DX: I11.0 Hypertensive heart disease with heart failure (principal); I50.9 Heart failure, unspecified; I24.9 Acute ischemic heart disease, unspecified; E05.90 Thyrotoxicosis, unspecified without thyrotoxic crisis or storm
CPT/HCPCS: 36415; 71045; 71275; 80053; 81003; 82550; 82553; 83605; 83880; 84484; 85025; 85379; 85610; 85730; 87040; 93005; 94640; 94664; 96372; 96374; 99285; J1650; J1940; Q9967

== ENCOUNTER 2018-05-21 22:52 | Emergency (ER) | payer OTHER ==
[~2018-05-21] VITALS: Ht 162.6 cm; Wt 63.5 kg
[~2018-05-21 22:52] MED LIST changes: +NKM
[2018-05-21] MEDS ORDERED: [UNRECOGNIZED DRUG - OTHER] (23:02)
--- NOTE | 2018-05-21 23:03 | NUR ---
ED Nurse Note: pt walked in c/o cough x 1 week. Pt is AO x 4times, VSS, on room air no distress. CHELITAD seen Pt at bedside.
[2018-05-21 23:24] VITALS: BP 148/87
[2018-05-21] MEDS ORDERED: Albuterol ud Inhalation HHN ONE (23:45)
[2018-05-21] MEDS ORDERED: Ipratropium 0.02% Inh Soln 2.5ml UD HHN ONE (23:45)
[2018-05-22] MEDS ORDERED: PREDNISONE20 MG ORAL (00:24)
[2018-05-22] MEDS ORDERED: ALBUTEROL SULF8.5 GM INH (00:24)
[2018-05-22] MEDS ORDERED: PROMETHAZINE-C118 M1 ORAL (00:24)
[2018-05-22 00:32] VITALS: BP 150/81
[2018-05-22 00:33] VITALS: BP 150/81
--- NOTE | 2018-05-22 00:33 | NUR ---
ER DISCHARGE NOTE: Patient is cleared to be discharged per ERMD, pt is aox4, on room air, with stable vital signs. pt was given dc and prescription instructions, pt was able to verbalize understanding, pt id band removed without complications. pt is able to ambulate with steady gait with son. pt took all belongings.
--- NOTE | 2018-05-22 03:02 | Emergency Room Report ---
History of Present Illness General Chief Complaint: Upper Respiratory Illness Source: Patient, Family Member Present Illness HPI 62-year-old female presents ED for evaluation. Patient complaining of cough times one week. Cough is productive with yellowish phlegm. Feels chest tightness. Notes history of asthma. Denies fevers or chills. Denies chest pain. Denies smoking or drug use. Denies sick contacts or recent travel. No other aggravating relieving factors. Denies any other associated symptoms Allergies: Coded Allergies: No Known Allergies (Verified , 05/27/14) Patient History Past Medical History: HTN, asthma Past Surgical History: none Pertinent Family History: none Social History: Denies: smoking, alcohol use, drug use Last Menstrual Period: 2 decades ago Now: No Immunizations: UTD Reviewed Nursing Documentation: PMH: Agreed; PSxH: Agreed Nursing Documentation-PMH Hx Cardiac Problems: Yes - hyperthyroidism Hx Hypertension: Yes Hx Diabetes: No Hx Gastrointestinal Problems: Yes - history kidney problems Review of Systems All Other Systems: negative except mentioned in HPI Physical Exam Vital Signs Date Time Temp Pulse Resp B/P (MAP) Pulse Ox O2 Delivery O2 Flow Rate FiO2 05/21/18 22:57 97.7 80 20 174/103 96 Room Air 05/21/18 23:40 21 Sp02 EP Interpretation: reviewed, normal General Appearance: no apparent distress, alert, GCS 15, non-toxic Head: normocephalic, atraumatic Eyes: bilateral eye normal inspection, bilateral eye PERRL ENT: hearing grossly normal, normal pharynx, no angioedema, normal voice Neck: full range of motion, supple/symm/no masses Respiratory: chest non-tender, normal breath sounds, speaking full sentences, wheezing Cardiovascular #1: regular rate, rhythm, no edema Cardiovascular #2: 2+ carotid (R), 2+ carotid (L), 2+ radial (R), 2+ radial (L) , 2+ dorsalis pedis (R), 2+ dorsalis pedis (L) Gastrointestinal: normal bowel sounds, non tender, soft, non-distended, no guarding, no rebound Rectal: deferred Genitourinary: normal inspection, no CVA tenderness Musculoskeletal: back normal, gait/station normal, normal range of motion, non- tender Neurologic: alert, oriented x3, responsive, motor strength/tone normal, sensory intact, speech normal Psychiatric: judgement/insight normal, memory normal, mood/affect normal, no suicidal/homicidal ideation Reflexes: 3+ bicep (R), 3+ bicep (L), 3+ tricep (R), 3+ tricep (L), 3+ knee (R) , 3+ knee (L) Skin: normal color, no rash, warm/dry, well hydrated Lymphatic: no adenopathy Medical Decision Making Diagnostic Impression: Primary Impression: Bronchitis ER Course Hospital Course 62-year-old female presents to ED complaining of cough, wheezing Differential diagnoses include: URI, bronchitis, asthma/COPD, pneumonia Clinical course Patient placed on stretcher. After initial history and physical I ordered prednisone and nebulizer treatment. Upon reassessment patient states cough and symptoms have improved. Findings consistent with bronchitis. Discussed findings with patient. These courses viral self-limiting. We'll discharge with inhaler and cough medication. Safe for discharge and close outpatient follow-up. We'll provide referrals Diagnosis - bronchitis Stable and discharged home with prescriptions for Rx promethazine/codeine, albuterol, prednisone. Instructed to followup with PMD. Return to ED if symptoms recur or worsen Last Vital Signs Date Time Temp Pulse Resp B/P (MAP) Pulse Ox O2 Delivery O2 Flow Rate FiO2 05/22/18 00:33 98.6 81 17 150/81 98 Room Air 21 Status: improved Disposition: HOME, SELF-CARE Condition: Stable Scripts Prednisone* (PREDNISONE*) 20 Mg Tablet 40 MG ORAL DAILY, #10 TAB Prov: Deon Duran MD 05/22/18 Codeine/Promethazine Hcl* (PROMETHAZINE-CODEINE SYRUP*) 118 Ml Syrup 5 ML ORAL Q6H PRN for For Cough, #118 ML 0 Refills Prov: Deon Duran MD 05/22/18 Albuterol Sulfate* (ALBUTEROL SULFATE MDI*) 8.5 Gm Hfa.aer.ad 2 PUFF INH Q6H, #1 EA 0 Refills Prov: Deon Duran MD 05/22/18 Referrals: [facility],REFERRING (PCP) [facility]ofi Pacheco [facility] Patient Instructions: Acute Bronchitis, [id number] Deon Duran MD May 22, 2018 03:02
== END 2018-05-22 00:46 | disposition home or self-care (01) ==
LOC: EMR 23:15
DX: J45.909 Unspecified asthma, uncomplicated (principal); I10 Essential (primary) hypertension
CPT/HCPCS: 94640; 99284; J7512

== ENCOUNTER 2018-06-02 21:34 | Emergency (ER) | payer OTHER ==
[~2018-06-02] VITALS: Ht 162.6 cm; Wt 63.5 kg
[~2018-06-02 21:34] MED LIST changes: +PREDNISONE20 MG ORAL; +PROMETHAZINE-C118 M1 ORAL; +[UNRECOGNIZED DRUG - OTHER]
--- NOTE | 2018-06-02 21:57 | Emergency Room Report ---
History of Present Illness General Chief Complaint: Flu Like Symptoms Source: Patient Present Illness HPI Is a 62-year-old female with history of high blood pressure. She presents with chief complaint of cough. She was here 2 weeks ago for similar complaint. Workup showed bronchitis with possible CHF. Patient is given medication. She said she felt better for a week but now similar symptom again. Coughing is nonproductive in nature. Worse with inspiration. Worse with lying flat. Worse with exertion. Denies any fever chills but no nausea no vomiting. Now with chest tightness and back pain from coughing. Allergies: Coded Allergies: No Known Allergies (Verified , 06/02/18) Patient History Past Medical History: see triage record, old chart reviewed, HTN Past Surgical History: other Pertinent Family History: none Social History: Denies: smoking Now: No Immunizations: other Reviewed Nursing Documentation: PMH: Agreed; PSxH: Agreed Nursing Documentation-PMH Hx Cardiac Problems: Yes - hyperthyroidism Hx Hypertension: Yes Hx Diabetes: No Hx Gastrointestinal Problems: Yes - history kidney problems Review of Systems Eye: Denies: eye pain, blurred vision ENT: Denies: ear pain, nose congestion, throat swelling Respiratory: Reports: cough, shortness of breath Cardiovascular: Denies: chest pain, palpitations Gastrointestinal: Denies: abdominal pain, diarrhea, nausea, vomiting Musculoskeletal: Denies: back pain, joint pain Skin: Denies: rash Neurological: Denies: headache, numbness Endocrine: Denies: increased thirst, increased urine Hematologic/Lymphatic: Denies: easy bruising All Other Systems: negative except mentioned in HPI Physical Exam Vital Signs Date Time Temp Pulse Resp B/P (MAP) Pulse Ox O2 Delivery O2 Flow Rate FiO2 06/02/18 21:41 98.1 84 20 159/74 97 Room Air vitals unremarkable Sp02 EP Interpretation: reviewed, normal General Appearance: well appearing, no apparent distress, alert Head: normocephalic, atraumatic Eyes: bilateral eye PERRL, bilateral eye EOMI ENT: hearing grossly normal, normal pharynx Neck: full range of motion, supple, no meningismus Respiratory: chest non-tender, accessory muscle use, rhonchi Cardiovascular #1: regular rate, rhythm, no murmur Gastrointestinal: normal bowel sounds, non tender, no mass, no organomegaly, no bruit, non-distended Musculoskeletal: back normal, gait/station normal, normal range of motion Psychiatric: mood/affect normal Skin: warm/dry Medical Decision Making Diagnostic Impression: Primary Impression: Hypertension Qualified Codes: I10 - Essential (primary) hypertension Additional Impressions: CHF (congestive heart failure) Qualified Codes: I50.9 - Heart failure, unspecified Cough ER Course Patient presents with a cough. I see no evidence of asthma. No evidence of ACS , PE, dissection to name a few. Patient was seen by me in March. Her BNP was elevated. She was transferred to outside hospital her insurance. Patient said that nothing was done. She was not discharged any medication. She did not get an echocardiogram. She was here recently and had CT chest which show small pleural effusion. I suspect her cough is secondary to fluid overloaded. Chest x-ray here is normal. Oxygenation is 100%. She has no pedal edema. She diuresed well after Lasix. Not much improvement with albuterol treatment. She felt better after Lasix and nebulized lidocaine treatment. Her blood pressure been running systolic 140s. We'll go ahead and put her on the pressure medication with a diuretic. Lab Results Impression labs with elevated BNP EKG Diagnostic Results Rate: normal Rhythm: NSR ST Segments: other - LVH with repol Rhythm Strip Diag. Results EP Interpretation: yes Rate: 85 Rhythm: NSR, no PVC's, no ectopy Chest X-Ray Diagnostic Results Chest X-Ray Diagnostic Results : Chest X-Ray Ordered: Yes # of Views/Limited/Complete: 1 View Indication: Shortness of Breath EP Interpretation: Yes Interpretation: no consolidation, no effusion, no pneumothorax, no acute cardiopulmonary disease Impression: No acute disease Electronically Signed by: Immanuel Rosas MD Last Vital Signs Date Time Temp Pulse Resp B/P (MAP) Pulse Ox O2 Delivery O2 Flow Rate FiO2 06/02/18 21:41 98.1 84 20 159/74 97 Room Air Status: improved Disposition: HOME, SELF-CARE Condition: Stable Scripts Furosemide* (LASIX*) 20 Mg Tablet 20 MG ORAL DAILY, #7 TAB Prov: Immanuel Rosas MD 06/03/18 Carvedilol (Coreg) 6.25 Mg Tablet 6.25 MG ORAL EVERY 12 HOURS, #60 TAB Prov: Immanuel Rosas MD 06/03/18 Additional Instructions: Follow-up with your doctor in 3-5 days. You may benefit from referral to see a coronary care unit nurse for echocardiogram. Return if symptom worsen. Immanuel Rosas MD Jun 02, 2018 21:57
[2018-06-02] MEDS ORDERED: Albuterol ud Inhalation HHN ONE (22:00)
[2018-06-02] MEDS ORDERED: Ipratropium 0.02% Inh Soln 2.5ml UD HHN ONE (22:00)
[2018-06-02] MEDS ORDERED: Solu-MEDROL 125mg Inj IVP ONE (22:00)
[2018-06-02 22:36] LABS: BASOPHILS % (AUTO) 1.2 % (0.0-2.0); EOSINOPHILS % (AUTO) 5.3 % (0.0-3.0); HEMATOCRIT 39.8 % (37.0-47.0); LYMPHOCYTES % (AUTO) 31.3 % (20.0-45.0); MEAN CORPUSCULAR VOLUME 93 FL (80-99); MONOCYTES % (AUTO) 11.5 % (1.0-10.0); NEUTROPHILS % (AUTO) 50.7 % (45.0-75.0); PLATELET COUNT 155 K/UL (150-450); RED BLOOD COUNT 4.28 M/UL (4.20-5.40); RED CELL DISTRIBUTION WIDTH 12.9 % (11.6-14.8); WHITE BLOOD COUNT 6.5 K/UL (4.8-10.8)
[2018-06-02 22:37] VITALS: BP 159/74
--- NOTE | 2018-06-02 22:37 | NUR ---
ER Nurse Note: Pt came from home c/o cough for 2 weeks. Wheezes heard in lungs. Cough is harsh, loud, dry; no sputum and phlegm noted. Shortness of breath noted. O2 at 97% room air. ERMD at pt side; will continue to montior.
[2018-06-02 22:41] LABS: ANION GAP 6 mmol/L (5-15); BLOOD UREA NITROGEN 27 mg/dL (7-18); CALCIUM 8.9 MG/DL (8.5-10.1); CARBON DIOXIDE 29 MMOL/L (21-32); CHLORIDE 108 MMOL/L (98-107); CREATININE 1.2 MG/DL (0.55-1.30); POTASSIUM 4.3 MMOL/L (3.5-5.1); SODIUM 143 MMOL/L (136-145)
--- NOTE | 2018-06-02 22:48 | Diagnostic Imaging Report ---
EXAM: XR Chest, 1 View CLINICAL HISTORY: SOB TECHNIQUE: Frontal view of the chest. COMPARISON: No relevant prior studies available. FINDINGS: Lungs: No consolidation. Pleural space: Unremarkable. No pneumothorax. Heart: Large cardiac silhouette. Mediastinum: Unremarkable. Bones/joints: No acute fracture. Other findings: Presumed old granulomatous disease IMPRESSION: No acute findings.
--- NOTE | 2018-06-02 23:41 | NUR ---
ER Nurse Note: Breathing treatment given; pt stated breathing did get better. Cough still present. ERMD adminsitered lido with breathing treatment; pt a&ox4, VSS, no signs of distress. All safety measures met; will continue to montior.
--- NOTE | 2018-06-02 23:59 | NUR ---
Note undone in EDM - 06/03/18 at 0000 by [email or web address] ED Nurse: Pt seen, treated, medically cleared by ER MD for discharge. Discharge instructions and prescription given with repeat verbalization by pt. Instructed pt to follow up with primary care physican within one week. ID band/IV removed, site clean and bandaged. Pt is AAO x4, VSS, no signs of distress, ambulatory and left with all belongings.
[2018-06-03] MEDS ORDERED: FUROSEMIDE20 M1 ORAL (00:16)
[2018-06-03] MEDS ORDERED: COREG6.25 MG ORAL (00:16)
[2018-06-03 00:25] VITALS: BP 142/82
--- NOTE | 2018-06-03 00:28 | NUR ---
ED Nurse: Pt seen, treated, medically cleared by ER MD for discharge. Discharge instructions and prescription given with repeat verbalization by pt. Instructed pt to follow up with primary care physican within one week. ID band/IV removed, site clean and bandaged. Pt is AAO x4, VSS, no signs of distress, ambulatory and left with all belongings.
== END 2018-06-03 00:28 | disposition home or self-care (01) ==
LOC: EMR 22:04
DX: I10 Essential (primary) hypertension (principal); I50.9 Heart failure, unspecified; R05 Cough
CPT/HCPCS: 36415; 71045; 80048; 83880; 84484; 85025; 93005; 94640; 96374; 96375; 99284; J1940; J2930

== ENCOUNTER 2018-06-05 23:42 | Emergency (ER) | payer OTHER ==
[~2018-06-05] VITALS: Ht 162.6 cm; Wt 63.5 kg
[~2018-06-05 23:42] MED LIST changes: +COREG6.25 MG ORAL; +FUROSEMIDE20 M1 ORAL
[2018-06-05 23:50] VITALS: BP 151/86
--- NOTE | 2018-06-05 23:50 | NUR ---
ED Nurse Note: Pt arrived ED from home, c/o sever coughing on and off for 2 weeks. Pt is A/O X 4. Vital signs stable at this time, waitng for orders.
[2018-06-06] MEDS ORDERED: Albuterol/Ipratropium 3ml neb HHN ONE (00:15)
[2018-06-06] MEDS ORDERED: Promethazine/DM 6.25mg/5ml ORAL ONE (00:15)
--- NOTE | 2018-06-06 00:19 | NUR ---
ED Nurse Note: Meds given as ordered.
--- NOTE | 2018-06-06 00:27 | NUR ---
ED Nurse Note: Breathing treatment given by RT.
[2018-06-06] MEDS ORDERED: Albuterol/Ipratropium 3ml neb ONE (00:35)
[2018-06-06] MEDS ORDERED: ALBUTEROL SULF8.5 GM INH (01:04)
[2018-06-06] MEDS ORDERED: PREDNISONE20 MG ORAL (01:04)
[2018-06-06] MEDS ORDERED: ROBITUSSIN AC5 ML ORAL (01:04)
[2018-06-06] MEDS ORDERED: ZITHROMAX250 MG ORAL (01:04)
[2018-06-06 01:08] VITALS: BP 143/82
--- NOTE | 2018-06-06 01:08 | NUR ---
ER DISCHARGE NOTE: Patient is cleared to be discharged per Dr. Reyes. Pt feels better at this time. Pt is A/ox4 on room air with stable vital signs. Pt was given dc and prescription instructions, pt was able to verbalize understanding. Pt id band removed. Pt is able to ambulate with steady gait, pt took all belongings.
--- NOTE | 2018-06-06 05:29 | Emergency Room Report ---
History of Present Illness General Chief Complaint: General Complaint Present Illness HPI Is a 62-year-old female presented after increased cough and difficulty breathing. Patient had noted to be having increased congestion as well as cough. She had prior history of asthma and has been taking inhaler. She also had prior history of cardiac disease she denied any fever. She reported having increased frequency of cough as well as increased work of breathing. She denies being a smoker. She had prior history of chronic lung disease. Allergies: Coded Allergies: No Known Allergies (Verified , 06/02/18) Patient History Past Medical History: see triage record Reviewed Nursing Documentation: PMH: Agreed; PSxH: Agreed Nursing Documentation-PMH Hx Cardiac Problems: Yes - ?CHF Hx Hypertension: Yes Hx Diabetes: No Hx Gastrointestinal Problems: Yes Review of Systems All Other Systems: negative except mentioned in HPI Physical Exam Vital Signs Date Time Temp Pulse Resp B/P (MAP) Pulse Ox O2 Delivery O2 Flow Rate FiO2 06/05/18 23:50 98.1 62 21 151/86 98 Room Air 06/06/18 00:23 21 General Appearance: well appearing, no apparent distress, alert, GCS 15, non- toxic Head: normocephalic, atraumatic ENT: hearing grossly normal, normal voice Neck: full range of motion, supple Respiratory: no respiratory distress, speaking full sentences, wheezing Cardiovascular #1: normal inspection, normal peripheral pulses, regular rate, rhythm Gastrointestinal: normal inspection, normal bowel sounds, non tender Musculoskeletal: normal inspection, back normal Neurologic: normal inspection, alert, oriented x3, responsive, normal gait Psychiatric: mood/affect normal Skin: no rash Medical Decision Making Diagnostic Impression: Primary Impression: Pneumonitis ER Course . Patient presented for shortness of breath. Differential included but was not limited to anemia, pneumonia, pneumothorax, myocardial infarction, pericardial effusion, congestive heart failure, acidosis. X-ray imaging of the chest interpreted by me showed slight cardiomegaly with evident infiltrate. Patient was noted to have prior history of granulomatous disease. She was started on oral steroids as well as breathing treatments with improvement in her difficulty breathing. Patient is noted to have some evidence of pneumonitis and was started on azithromycin. She is advised to follow-up with primary care physician for recheck. Patient advised to return if she began having worsening shortness of breath or other concerns. Last Vital Signs Date Time Temp Pulse Resp B/P (MAP) Pulse Ox O2 Delivery O2 Flow Rate FiO2 06/06/18 01:08 98.1 73 18 143/82 99 Room Air 21 Status: improved Disposition: HOME, SELF-CARE Condition: Stable Scripts Guaifenesin/Codeine (Guaifenesin-Codeine Syrup) 5 Ml Liquid 5 ML ORAL Q6H PRN for For Cough, #118 ML Prov: Dawson Reyes MD 06/06/18 Albuterol Sulfate* (ALBUTEROL SULFATE MDI*) 8.5 Gm Hfa.aer.ad 2 PUFF INH Q4H PRN for cough/wheezing, #1 EA 0 Refills Prov: Dawson Reyes MD 06/06/18 Prednisone* (PREDNISONE*) 20 Mg Tablet 40 MG ORAL DAILY, #10 TAB Prov: Dawson Reyes MD 06/06/18 Azithromycin* (ZITHROMAX*) 250 Mg Tablet 250 MG ORAL DAILY, #6 TAB 0 Refills Take two tables once daily for 1 day, then one tablet once daily for 4 days. Prov: Dawson Reyes MD 06/06/18 Referrals: NOT CHOSEN IPA/,REFERRING Patient Instructions: Pneumonitis Dawson Reyes MD Jun 06, 2018 05:29
--- NOTE | 2018-06-06 10:34 | Diagnostic Imaging Report ---
Indication: Shortness of breath Technique: One view of the chest Comparison: 06/02/2018 Findings: The heart is enlarged. Lungs and pleural spaces are clear. No significant interim change Impression: Negative
== END 2018-06-06 01:08 | disposition home or self-care (01) ==
LOC: EMR 23:57
DX: J18.9 Pneumonia, unspecified organism (principal); I11.0 Hypertensive heart disease with heart failure; I50.9 Heart failure, unspecified
CPT/HCPCS: 71045; 94640; 94664; 99284; J7512; J7620

== ENCOUNTER 2018-08-24 20:53 | Emergency (ER) | payer OTHER ==
[~2018-08-24] VITALS: Ht 160 cm; Wt 63.5 kg
[~2018-08-24 20:53] MED LIST changes: +ROBITUSSIN AC5 ML ORAL
[2018-08-24 21:15] VITALS: BP 124/80
--- NOTE | 2018-08-24 21:15 | NUR ---
ER Nurse Note: Pt came from home c/o n/v and feeling weak since 08/23. Pt stated she ate "something wrong for dinner" and her symptoms started since. Pt a&ox4, VSS, stable. Pt ambulatory, no difficulty voiding. No active vomiting at beside; [facility]
[2018-08-24] MEDS ORDERED: Lidocaine 2% Visc 15ml soln ORAL ONE (21:30)
[2018-08-24] MEDS ORDERED: Dicyclomine HCl 10mg/5ml oral soln ORAL ONE (21:30)
[2018-08-24] MEDS ORDERED: Mylanta II UD 30ml ORAL ONE (21:30)
[2018-08-24 21:45] LABS: APPEARANCE,URINE CLEAR; BILIRUBIN, URINE NEGATIVE (NEGATIVE); COLOR,URINE PALE YELLOW; GLUCOSE, URINE (UA) NEGATIVE (NEGATIVE); KETONES,URINE NEGATIVE (NEGATIVE); LEUKOCYTE ESTERASE ,URINE NEGATIVE (NEGATIVE); NITRITE,URINE NEGATIVE (NEGATIVE); PH,URINE 7 (4.5-8.0); PROTEIN,URINE NEGATIVE (NEGATIVE); UROBILINOGEN,URINE NORMAL MG/DL (0.0-1.0)
[2018-08-24 21:58] LABS: BASOPHILS % (AUTO) 1.5 % (0.0-2.0); EOSINOPHILS % (AUTO) 3.2 % (0.0-3.0); HEMATOCRIT 39.2 % (37.0-47.0); HEMOGLOBIN 13.8 G/DL (12.0-16.0); MEAN CORPUSCULAR VOLUME 87 FL (80-99); MONOCYTES % (AUTO) 9.5 % (1.0-10.0); NEUTROPHILS % (AUTO) 47.8 % (45.0-75.0); PLATELET COUNT 135 K/UL (150-450); RED BLOOD COUNT 4.53 M/UL (4.20-5.40); RED CELL DISTRIBUTION WIDTH 11.5 % (11.6-14.8); WHITE BLOOD COUNT 6.2 K/UL (4.8-10.8)
[2018-08-24 22:09] LABS: ALANINE AMINOTRANSFERASE 20 U/L (12-78); ALBUMIN/GLOBULIN RATIO 0.7 (1.0-2.7); ALKALINE PHOSPHATASE 63 U/L (46-116); ANION GAP 6 mmol/L (5-15); ASPARTATE AMINO TRANSFERASE 43 U/L (15-37); BILIRUBIN,TOTAL 0.7 MG/DL (0.2-1.0); BLOOD UREA NITROGEN 20 mg/dL (7-18); CALCIUM 8.7 MG/DL (8.5-10.1); CARBON DIOXIDE 25 MMOL/L (21-32); CHLORIDE 107 MMOL/L (98-107); CREATININE 1.1 MG/DL (0.55-1.30); SODIUM 138 MMOL/L (136-145)
[2018-08-24 22:10] LABS: POTASSIUM 6.2 MMOL/L (3.5-5.1)
--- NOTE | 2018-08-24 22:35 | NUR ---
ER Nurse Note: Repeat K drawn and sent to lab. All orders completed per ERMD orders. All safety measures met; will continue to [facility].
[2018-08-24] MEDS ORDERED: ONDANSETRON ODT4 MG BC (23:41)
[2018-08-24] MEDS ORDERED: DICYCLOMINE HCL10 MG ORAL (23:41)
[2018-08-24] MEDS ORDERED: RANITIDINE HCL150 MG ORAL (23:41)
[2018-08-24 23:55] VITALS: BP 154/73
--- NOTE | 2018-08-24 23:55 | NUR ---
ER Nurse Note: All orders completed per ERMD orders. Pt seen, treated, medically cleared for discharge by ERMD. Discharge instructions and prescriptions given with repeat verbazliaion by pt. Instructed pt to follow up with primary care provider. Pt a&ox4, VSS, no signs of distress. ID band removed. IV removed; site clean and bandaged. Pt left with all belongings with steady gait via own transportation.
--- NOTE | 2018-08-25 05:40 | Emergency Room Report ---
History of Present Illness General Chief Complaint: General Complaint Source: Patient Present Illness HPI 63-year-old female presents ED for evaluation. Walked in complaining of abdominal pain, vomiting diarrhea since yesterday. Started after eating some "bad food". Pain is cramping, 5 out of 10, nonradiating. Denies recent travel or recent antibiotic use. Denies fevers or chills. No other aggravating or relieving factors. Denies any other associated symptoms Allergies: Coded Allergies: No Known Allergies (Verified , 06/02/18) Patient History Past Medical History: HTN, CHF Past Surgical History: none Pertinent Family History: none Social History: Denies: smoking, alcohol use, drug use Now: No Immunizations: UTD Reviewed Nursing Documentation: PMH: Agreed; PSxH: Agreed Nursing Documentation-PMH Hx Cardiac Problems: Yes - CHF Hx Hypertension: Yes Hx Diabetes: No Hx Gastrointestinal Problems: Yes Review of Systems All Other Systems: negative except mentioned in HPI Physical Exam Vital Signs Date Time Temp Pulse Resp B/P (MAP) Pulse Ox O2 Delivery O2 Flow Rate FiO2 08/24/18 21:03 98.2 71 18 124/80 (95) 99 Room Air Sp02 EP Interpretation: reviewed, normal General Appearance: no apparent distress, alert, GCS 15, non-toxic Head: normocephalic, atraumatic Eyes: bilateral eye normal inspection, bilateral eye PERRL ENT: hearing grossly normal, normal pharynx, no angioedema, normal voice Neck: full range of motion, supple/symm/no masses Respiratory: chest non-tender, lungs clear, normal breath sounds, speaking full sentences Cardiovascular #1: regular rate, rhythm, no edema Cardiovascular #2: 2+ carotid (R), 2+ carotid (L), 2+ radial (R), 2+ radial (L) , 2+ dorsalis pedis (R), 2+ dorsalis pedis (L) Gastrointestinal: normal bowel sounds, non tender, soft, non-distended, no guarding, no rebound Rectal: deferred Genitourinary: normal inspection, no CVA tenderness Musculoskeletal: back normal, gait/station normal, normal range of motion, non- tender Neurologic: alert, oriented x3, responsive, motor strength/tone normal, sensory intact, speech normal Psychiatric: judgement/insight normal, memory normal, mood/affect normal, no suicidal/homicidal ideation Reflexes: 3+ bicep (R), 3+ bicep (L), 3+ tricep (R), 3+ tricep (L), 3+ knee (R) , 3+ knee (L) Skin: normal color, no rash, warm/dry, well hydrated Lymphatic: no adenopathy Medical Decision Making Diagnostic Impression: Primary Impression: Gastroenteritis ER Course Hospital Course 63-year-old F presents to ED with cramping abdominal pain with vomiting, diarrhea differential diagnosis: gastritis, SBO, cholecystits, gastroenteritis Clinical course Patient placed on stretcher. On hospital monitor. After initial history and physical I ordered labs, IV fluids, Zofran, GI cocktail and pepcid Labs - no leukocytosis, electrolytes ok, LFTs normal, UA unremarkable discussed findings with patient. Course is viral and self-limited. Safe for discharge for close outpatient follow-up. Will provide referrals I feel this is a highly complex case requiring extensive working including EKG/ Rhythm strip, Xray/CT/US, Blood/urine lab work, repeat exams while in ED, and administration of strong opiates/narcotics for pain control, admission to hospital or close patient follow up. Diagnosis - gastroenteritis Stable and discharged to home with prescriptions for Zantac, bentyl, zofran. Followup with PMD. Return to ED if symptoms recur or worsen Labs Test 08/24/18 21:05 08/24/18 21:35 08/24/18 22:30 Urine Color Pale yellow Urine Appearance Clear Urine pH 7 (4.5-8.0) Urine Specific [place] 1.010 (1.005-1.035) Urine Protein Negative (NEGATIVE) Urine Glucose (UA) Negative (NEGATIVE) Urine Ketones Negative (NEGATIVE) Urine Blood Negative (NEGATIVE) Urine Nitrite Negative (NEGATIVE) Urine Bilirubin Negative (NEGATIVE) Urine Urobilinogen Normal MG/DL (0.0-1.0) Urine Leukocyte Esterase Negative (NEGATIVE) White Blood Count 6.2 K/UL (4.8-10.8) Red Blood Count 4.53 M/UL (4.20-5.40) Hemoglobin 13.8 G/DL (12.0-16.0) Hematocrit 39.2 % (37.0-47.0) Mean Corpuscular Volume 87 FL (80-99) Mean Corpuscular Hemoglobin 30.5 PG (27.0-31.0) Mean Corpuscular Hemoglobin Concent 35.3 G/DL (32.0-36.0) Red Cell Distribution Width 11.5 % (11.6-14.8) Platelet Count 135 K/UL (150-450) Mean Platelet Volume 12.1 FL (6.5-10.1) Neutrophils (%) (Auto) 47.8 % (45.0-75.0) Lymphocytes (%) (Auto) 38.0 % (20.0-45.0) Monocytes (%) (Auto) 9.5 % (1.0-10.0) Eosinophils (%) (Auto) 3.2 % (0.0-3.0) Basophils (%) (Auto) 1.5 % (0.0-2.0) Sodium Level 138 MMOL/L (136-145) Potassium Level 6.2 MMOL/L (3.5-5.1) 4.0 MMOL/L (3.5-5.1) Chloride Level 107 MMOL/L (98-107) Carbon Dioxide Level 25 MMOL/L (21-32) Anion Gap 6 mmol/L (5-15) Blood Urea Nitrogen 20 mg/dL (7-18) Creatinine 1.1 MG/DL (0.55-1.30) Estimat Glomerular Filtration Rate 50.3 mL/min (>60) Glucose Level 127 MG/DL (74-106) Calcium Level 8.7 MG/DL (8.5-10.1) Total Bilirubin 0.7 MG/DL (0.2-1.0) Aspartate Amino Transf (AST/SGOT) 43 U/L (15-37) Alanine Aminotransferase (ALT/SGPT) 20 U/L (12-78) Alkaline Phosphatase 63 U/L (46-116) Total Protein 7.1 G/DL (6.4-8.2) Albumin 3.0 G/DL (3.4-5.0) Globulin 4.1 g/dL Albumin/Globulin Ratio 0.7 (1.0-2.7) Lipase 211 U/L (73-393) Last Vital Signs Date Time Temp Pulse Resp B/P (MAP) Pulse Ox O2 Delivery O2 Flow Rate FiO2 08/24/18 23:55 98.2 86 20 154/73 98 Room Air Status: improved Disposition: HOME, SELF-CARE Condition: Stable Scripts Dicyclomine Hcl* (DICYCLOMINE HCL*) 10 Mg Capsule 10 MG ORAL TID, #10 CAP Prov: Deon Duran MD 08/24/18 Ranitidine Hcl* (ZANTAC*) 150 Mg Tablet 150 MG ORAL TWICE A DAY, #30 TAB Prov: Deon Duran MD 08/24/18 Ondansetron Odt* (ZOFRAN ODT*) 4 Mg Tab.rapdis 4 MG BC EVERY 8 HOURS, #10 TAB 0 Refills Prov: Deon Duran MD 08/24/18 Patient Instructions: Viral Gastroenteritis, Adult, [id number] Deon Duran MD Aug 25, 2018 05:40
== END 2018-08-24 23:55 | disposition home or self-care (01) ==
LOC: EMR 21:43
DX: K52.9 Noninfective gastroenteritis and colitis, unspecified (principal); I11.0 Hypertensive heart disease with heart failure; I50.9 Heart failure, unspecified
CPT/HCPCS: 36415; 80053; 81003; 83690; 84132; 85025; 96361; 96374; 96375; 99284; J2405; S0028

== ENCOUNTER 2018-10-04 19:44 | Emergency (ER) | payer OTHER ==
[~2018-10-04] VITALS: Ht 160 cm; Wt 63.5 kg
[~2018-10-04 19:44] MED LIST changes: +DICYCLOMINE HCL10 MG ORAL; +ONDANSETRON ODT4 MG BC; +RANITIDINE HCL150 MG ORAL
[2018-10-04 20:11] VITALS: BP 142/83
[2018-10-04] MEDS ORDERED: Isovue-300 100ml vial INJ PRN (20:15)
[2018-10-04] MEDS: Albuterol/Ipratropium 3ml neb HHN ONE (20:25)
--- NOTE | 2018-10-04 20:30 | Emergency Room Report ---
History of Present Illness General Chief Complaint: Upper Respiratory Illness Present Illness HPI 63-year-old female with no significant past medical history here complaining of 1 week of right lower quadrant abdominal pain rating a 7 out of 10 without radiation. Denies nausea vomiting, diarrhea, constipation, blood in her stool. Also complains of few hours of painful urination frequent urination. Denies hematuria. Complains of fever and chills. Of shortness of breath as well as productive cough with yellow phlegm. Denies sore throat and congestion. Patient has history of bronchitis. Denies smoking tobacco, drug use, alcohol intake. Denies lifting heavy objects. Denies any past surgical history. Denies chest pain, palpitation, dizziness, headache, blurry vision. Patient has low oxygenation of 90%. Denies wheezing at this time. (Yandy Hernadnez) Allergies: Coded Allergies: No Known Allergies (Verified , 06/02/18) Patient History Past Medical History: see triage record Past Surgical History: unable to obtain Pertinent Family History: none Last Menstrual Period: na Now: No Immunizations: UTD Reviewed Nursing Documentation: PMH: Agreed; PSxH: Agreed (Yandy Hernandez) Nursing Documentation-PMH Hx Cardiac Problems: Yes - CHF Hx Hypertension: Yes Hx Diabetes: No Hx Gastrointestinal Problems: Yes (Yandy Hernandez) Review of Systems All Other Systems: negative except mentioned in HPI (Yandy Hernandez) Physical Exam Vital Signs Date Time Temp Pulse Resp B/P (MAP) Pulse Ox O2 Delivery O2 Flow Rate FiO2 10/04/18 20:04 99.1 109 20 142/83 (102) 90 Room Air Sp02 EP Interpretation: reviewed, abnormal General Appearance: alert, GCS 15, non-toxic, mild distress Head: normocephalic, atraumatic Eyes: bilateral eye normal inspection, bilateral eye PERRL ENT: normal ENT inspection, hearing grossly normal, normal pharynx, no angioedema, normal voice, TMs + canals normal, uvula midline, moist mucus membranes Neck: normal inspection, full range of motion, supple, thyroid normal, no meningismus Respiratory: chest non-tender, lungs clear, normal breath sounds, no rhonchi, no respiratory distress, no retraction, no accessory muscle use, no wheezing Cardiovascular #1: normal inspection, normal peripheral pulses, regular rate, rhythm, no murmur Gastrointestinal: normal bowel sounds, non tender, no mass, no organomegaly, no peritonitis, no bruit, non-distended, no guarding, no hernia, no pulsatile mass, no rebound Rectal: deferred Genitourinary: no CVA tenderness Musculoskeletal: normal inspection, back normal, digits/nails normal, gait/ station normal Neurologic: normal inspection, alert, oriented x3, responsive, bank courier III-XII nml as tested Psychiatric: normal inspection, judgement/insight normal, memory normal Skin: no rash, normal color Lymphatic: normal inspection, no adenopathy (Yandy Hernandez) Medical Decision Making PA Attestation Diagnosis and treatment plans were reviewed and discussed with my supervising physician Dr. Ruiz (Yandy Hernandez) Medicare Attestation I saw and evaluated the patient and discussed the care with Yandy ROSE. I agree with the findings and plan as documented in the note. (Jono Ruiz M.D.) Diagnostic Impression: Primary Impression: Pneumonia ER Course 63-year-old female with no significant past medical history here complaining of 1 week of right lower quadrant abdominal pain rating a 7 out of 10 without radiation. Denies nausea vomiting, diarrhea, constipation, blood in her stool. Also complains of few hours of painful urination frequent urination. Denies hematuria. Complains of fever and chills. Of shortness of breath as well as productive cough with yellow phlegm. Denies sore throat and congestion. Patient has history of bronchitis. Denies smoking tobacco, drug use, alcohol intake. Denies lifting heavy objects. Denies any past surgical history. Denies chest pain, palpitation, dizziness, headache, blurry vision. Patient has low oxygenation of 90%. Denies wheezing at this time. I signed the patient to Dr. Ruiz Ddx considered but are not limited to: Pneumonia, bronchitis, pneumothorax, UTI , pyelonephritis Vital signs: are WNL, pt. is afebrile H&PE are most consistent with: Pneumonia ORDERS: UA, EKG, CBC, CMP, UA, ED INTERVENTIONS: Albuterol and ipratropium nebulizer treatment, ceftriaxone and azithromycin Patient was admited with diagnosis of Pneumonia under supervision of : Joseph pt stable at time of admission (Yandy Hernandez) ER Course 63-year-old female initially short of breath, requiring DuoNeb. Antibiotics were given for her pneumonia, ceftriaxone and azithromycin, patient slowly improved Laboratory Tests Test 10/04/18 20:20 10/04/18 21:30 Urine Color Pale yellow Urine Appearance Clear Urine pH 5 (4.5-8.0) Urine Specific [place] 1.015 (1.005-1.035) Urine Protein 3+ (NEGATIVE) H Urine Glucose (UA) Negative (NEGATIVE) Urine Ketones Negative (NEGATIVE) Urine Blood 1+ (NEGATIVE) H Urine Nitrite Negative (NEGATIVE) Urine Bilirubin Negative (NEGATIVE) Urine Urobilinogen Normal MG/DL (0.0-1.0) Urine Leukocyte Esterase 1+ (NEGATIVE) H Urine RBC 0-2 /HPF (0 - 2) Urine WBC 0-2 /HPF (0 - 2) Urine Squamous Epithelial Cells Occasional /LPF Urine Bacteria None /HPF (NONE) White Blood Count 9.6 K/UL (4.8-10.8) Red Blood Count 4.89 M/UL (4.20-5.40) Hemoglobin 15.3 G/DL (12.0-16.0) Hematocrit 45.0 % (37.0-47.0) Mean Corpuscular Volume 92 FL (80-99) Mean Corpuscular Hemoglobin 31.3 PG (27.0-31.0) H Mean Corpuscular Hemoglobin Concent 34.1 G/DL (32.0-36.0) Red Cell Distribution Width 11.0 % (11.6-14.8) L Platelet Count 154 K/UL (150-450) Mean Platelet Volume 11.7 FL (6.5-10.1) H Neutrophils (%) (Auto) 83.4 % (45.0-75.0) H Lymphocytes (%) (Auto) 11.3 % (20.0-45.0) L Monocytes (%) (Auto) 4.2 % (1.0-10.0) Eosinophils (%) (Auto) 0.6 % (0.0-3.0) Basophils (%) (Auto) 0.6 % (0.0-2.0) Prothrombin Time 10.2 SEC (9.30-11.50) Prothrombin Time INR 1.0 (0.9-1.1) PTT 26 SEC (23-33) Sodium Level 139 MMOL/L (136-145) Potassium Level 4.3 MMOL/L (3.5-5.1) Chloride Level 102 MMOL/L (98-107) Carbon Dioxide Level 24 MMOL/L (21-32) Anion Gap 13 mmol/L (5-15) Blood Urea Nitrogen 25 mg/dL (7-18) H Creatinine 1.5 MG/DL (0.55-1.30) H Estimate Glomerular Filtration Rate 35.2 mL/min (>60) Glucose Level 113 MG/DL (74-106) H Calcium Level 9.4 MG/DL (8.5-10.1) Total Bilirubin 0.7 MG/DL (0.2-1.0) Aspartate Amino Transferase (AST) 26 U/L (15-37) Alanine Aminotransferase (ALT) 19 U/L (12-78) Alkaline Phosphatase 95 U/L (46-116) Total Protein 8.5 G/DL (6.4-8.2) H Albumin 3.8 G/DL (3.4-5.0) Globulin 4.7 g/dL Albumin/Globulin Ratio 0.8 (1.0-2.7) L (Jono Ruiz M.D.) EKG Diagnostic Results Rate: tachycardiac Rhythm: other - Tachycardic ST Segments: no acute changes Other Impression Tachycardia with frequent PVC (Yandy Hernandez) Chest X-Ray Diagnostic Results Chest X-Ray Diagnostic Results : Chest X-Ray Ordered: Yes # of Views/Limited/Complete: 1 View Indication: Shortness of Breath EP Interpretation: Yes PA Xray: Interpretation reviewed, by supervising MD, and agrees with findings. Interpretation: no pneumothorax, other - Consolidation infiltrates noted in the right mid and lower lobes Impression: Other - Consolidation in the right mid to lower lobe Electronically Signed by: Yandy Posada PA-C (Yandy Hernandez) Last Vital Signs Date Time Temp Pulse Resp B/P (MAP) Pulse Ox O2 Delivery O2 Flow Rate FiO2 10/04/18 20:11 109 20 Room Air 10/04/18 20:11 99.1 142/83 90 (Yandy Hernandez) Disposition: XFER SHT-TRM HOSP Condition: Stable Yandy Hernandez Oct 04, 2018 20:30 Jono Ruiz M.D. Oct 04, 2018 22:43
[2018-10-04 20:46] LABS: APPEARANCE,URINE CLEAR; BILIRUBIN, URINE NEGATIVE (NEGATIVE); COLOR,URINE PALE YELLOW; GLUCOSE, URINE (UA) NEGATIVE (NEGATIVE); KETONES,URINE NEGATIVE (NEGATIVE); LEUKOCYTE ESTERASE ,URINE 1+ (NEGATIVE); NITRITE,URINE NEGATIVE (NEGATIVE); PH,URINE 5 (4.5-8.0); PROTEIN,URINE 3+ (NEGATIVE); UROBILINOGEN,URINE NORMAL MG/DL (0.0-1.0)
[2018-10-04] MEDS: cefTRIAXone 1 GM in NS 55 ML IVPB ONE (21:37)
[2018-10-04 21:45] LABS: BASOPHILS % (AUTO) 0.6 % (0.0-2.0); EOSINOPHILS % (AUTO) 0.6 % (0.0-3.0); HEMOGLOBIN 15.3 G/DL (12.0-16.0); LYMPHOCYTES % (AUTO) 11.3 % (20.0-45.0); MEAN CORPUSCULAR VOLUME 92 FL (80-99); MONOCYTES % (AUTO) 4.2 % (1.0-10.0); NEUTROPHILS % (AUTO) 83.4 % (45.0-75.0); PLATELET COUNT 154 K/UL (150-450); RED BLOOD COUNT 4.89 M/UL (4.20-5.40); WHITE BLOOD COUNT 9.6 K/UL (4.8-10.8)
[2018-10-04 21:58] LABS: ANION GAP 13 mmol/L (5-15); BLOOD UREA NITROGEN 25 mg/dL (7-18); CALCIUM 9.4 MG/DL (8.5-10.1); CARBON DIOXIDE 24 MMOL/L (21-32); CHLORIDE 102 MMOL/L (98-107); CREATININE 1.5 MG/DL (0.55-1.30); POTASSIUM 4.3 MMOL/L (3.5-5.1); SODIUM 139 MMOL/L (136-145)
[2018-10-04] MEDS: Azithromycin 500 MG in NS 275 ML IV ONE (21:59)
[2018-10-04 22:02] LABS: ALANINE AMINOTRANSFERASE 19 U/L (12-78); ALBUMIN 3.8 G/DL (3.4-5.0); ALBUMIN/GLOBULIN RATIO 0.8 (1.0-2.7); ALKALINE PHOSPHATASE 95 U/L (46-116); ASPARTATE AMINO TRANSFERASE 26 U/L (15-37); BILIRUBIN,TOTAL 0.7 MG/DL (0.2-1.0)
[2018-10-04 22:25] VITALS: BP 132/86
[2018-10-05] MEDS ORDERED: ZITHROMAX250 MG ORAL (00:04)
[2018-10-05 00:15] VITALS: BP 136/92
--- NOTE | 2018-10-05 10:25 | Diagnostic Imaging Report ---
Indication: Shortness of breath Technique: One view of the chest Comparison: 06/06/2017 Findings: . Development of bilateral interstitial and airspace edema. Pleural spaces are clear. 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 The heart is borderline enlarged. Impression: Bilateral interstitial and airspace edema Borderline cardiomegaly
== END 2018-10-05 00:15 | disposition left against medical advice (07) ==
LOC: EMR 20:45
DX: J18.9 Pneumonia, unspecified organism (principal); I11.0 Hypertensive heart disease with heart failure; I50.9 Heart failure, unspecified
CPT/HCPCS: 36415; 71045; 80053; 81001; 85025; 85610; 85730; 86850; 86900; 86901; 93005; 94640; 94664; 96365; 96367; 99285; J0456; J0696; J7050; J7620